=== PATIENT | male | born 1950 | race Caucasian/White ===

== ENCOUNTER 2016-12-01 22:02 | Emergency (ER) | payer MEDICARE, OTHER ==
[~2016-12-01] VITALS: Ht 182.9 cm; Wt 97.0 kg
[2016-12-01 22:05] VITALS: Ht 182.9 cm; Wt 97.0 kg
[2016-12-02] MEDS ORDERED: IBUPROFEN 600 MG TAB PO ONE
--- NOTE | 2016-12-02 06:47 | ERD ---
ER Documentation Chief Complaint Date/Time DATE: 12/02/16 TIME: 06:40 Chief Complaint r arm pain after a vaccination today HPI Patient is a 66-year-old male the past medical history of hypertension who presents to the emergency department with bilateral arm pain after receiving his vaccinations today. Patient states received 2 vaccinations earlier today. Patient reports pain to his bilateral deltoids. Patient denies taking any medication. Patient denies any fevers or chills. Patient does report decreased range of motion of his left shoulder. Patient denies any falls or trauma. Denies any chest pain, shortness of breath, nausea, vomiting, headache or loss consciousness. ROS All systems reviewed and are negative except as per history of present illness. Medications Home Meds Reported Medications [None] No Conflict Check 03/13/14 Allergies Allergies: Coded Allergies: No Known Allergies (Verified Allergy, Unknown, 03/21/07) PMhx/Soc History of Surgery: Yes (TOSILLECTOMY CHILDHOOD, L ARM ABCESS REMOVED) Anesthesia Reaction: No Hx Neurological Disorder: No Hx Respiratory Disorders: No Hx Cardiac Disorders: Yes (HTN) Hx Psychiatric Problems: No Hx Miscellaneous Medical Probl: No Hx Alcohol Use: Yes (15 YRS AGO QUIT) Hx Substance Use: Yes (HEROIN, COCAINE 15 YRS AGO) Hx Tobacco Use: Yes (15 YRS AGO QUIT) Smoking Status: Former smoker FmHx Family History: No diabetes Physical Exam Vitals Vital Signs Date Time Temp Pulse Resp B/P Pulse Ox O2 Delivery O2 Flow Rate FiO2 12/01/16 22:05 97.9 83 20 148/78 97 Physical Exam GENERAL: Well-developed, well-nourished male. Appears in no acute distress. HEAD: Normocephalic, atraumatic. EYES: Pupils are equally reactive bilaterally. EOMs grossly intact. No conjunctival erythema. ENT: Moist mucous membranes. No uvula deviation. No kissing tonsils. NECK: Supple. No meningismus. Normal range of motion of the neck. LUNG: Clear to auscultation bilaterally. No rhonchi, wheezing, rales or coarse breath sounds. HEART: Regular rate and rhythm. No murmurs, rubs or gallops. EXTREMITIES: Equal pulses bilaterally. No peripheral clubbing, cyanosis or edema. No unilateral leg swelling. NEUROLOGIC: Alert and oriented. Moving all four extremities without any difficulty. Normal speech. Steady gait. SKIN: Normal color. Warm and dry. No rashes or lesions. BILATERAL ARM: No obvious deformity, warmth, erythema, ecchymosis or swelling. Skin intact. Old scar noted on the patient's left shoulder. Decreased range of motion of the patient's left shoulder. Normal range of motion of the patient 's right shoulder. Tender to palpation of bilateral deltoid muscles.. Sensation intact to light touch. Neurovascularly intact. (Able to give thumbs up , make an ok sign, cross digits 2 and 3, thumb to pinky opposition. 2+ RP.) No snuffbox tenderness. Results 24 hrs Current Medications Medications (Trade) Dose Ordered Sig/Lilian Route PRN Reason Start Time Stop Time Status Last Admin Dose Admin Ibuprofen (Motrin) 600 mg ONCE ONCE PO 12/02/16 00:00 12/02/16 00:06 DC Procedures/MDM MEDICAL DECISION MAKING: This is a 66-year-old male who presents with bilateral arm pain after receiving 2 vaccinations earlier today. Vital signs were reviewed. Patient was afebrile. Patient denied any trauma or falls. X-ray imaging was not obtained. Patient was offered ibuprofen here in the ED. Given these findings, the patient's condition is most consistent with deltoid pain secondary to vaccinations. I have a much lower clinical concern for shoulder dislocation, humerus fracture, hematoma, deep space infection. Of note, nursing staff advised me that patient eloped prior to receiving medication and paperwork.. Patient was observed by registration staff to be walking out of the emergency department. Departure Diagnosis: Primary Impression: Pain of left arm Condition: YAW Pascual PA-C Dec 02, 2016 06:47
== END 2016-12-02 02:01 | disposition left against medical advice (07) ==
LOC: FTE 22:02
DX: M79.601 Pain in right arm (principal); I10 Essential (primary) hypertension; M79.602 Pain in left arm; Z87.891 Personal history of nicotine dependence
CPT/HCPCS: 99282